=== PATIENT | male | born 1950 | race African-American/Black ===

== ENCOUNTER 2019-04-16 15:03 | Emergency (ER) | payer MEDICARE ==
[~2019-04-16] VITALS: Ht 180.3 cm; Wt 69.0 kg
[2019-04-16 15:25] VITALS: BP 149/85
== END 2019-04-16 20:07 | disposition left against medical advice (07) ==
LOC: ER 15:03
DX: Z53.21 Procedure and treatment not carried out due to patient leaving prior to being seen by health care provider (principal)